=== PATIENT | female | born 2005 | race Two or more races ===

== ENCOUNTER → 2023-10-29 | Outpatient (CLI) | payer BC ==
[2023-10-29 07:29] LABS: Urine Bacteria None Seen /hpf (None Seen)
[2023-10-29 07:36] LABS: Basophils # (auto) 0.1 10 ^3/uL (0-0.2); Basophils % (auto) 0.7 % (0.0-2.0); Eosinophils # (auto) 0.2 10 ^3/uL (0-0.8); Eosinophils % (auto) 1.7 % (0.0-7.0); Hematocrit 39.6 % (36.0-46.0); Hemoglobin 13.2 g/dL (12.2-16.2); Lymphocytes # (auto) 2.3 10 ^3/uL (0.4-5.4); Lymphocytes % (auto) 22.6 % (10.0-50.0); Mean Corpuscular Hemoglobin 29.3 pg (28.0-32.0); Mean Corpuscular Hgb Conc. 33.3 g/dL (32.0-36.0); Mean Corpuscular Volume 88.2 fL (80.0-100.0); Monocytes # (auto) 0.7 10 ^3/uL (0-1.3); Monocytes % (auto) 7.3 % (0.0-12.0); Neutrophils # (auto) 6.8 10 ^3/uL (1.6-8.6); Neutrophils % (auto) 67.7 % (37.0-80.0); Platelet Count (auto) 336 10^3/uL (140-450); Red Blood Cells 4.49 10^6/uL (4.0-5.20); Red Cell Distribution Width 13.3 % (11.8-14.3); Urine Blood Negative /uL (Negative); Urine Clarity Clear (Clear); Urine Color Light-Yellow (Yellow); Urine Protein, UAD Negative (Negative); Urine Specific Gravity 1.016 (1.001-1.035); Urine Urobilinogen Normal (Negative); Urine WBC 1 /hpf (0 - 5); Urine pH 6.5 (5.0-9.0); White Blood Cell 10.1 10^3/uL (4.4-10.8)
[2023-10-29 08:21] LABS: Albumin 4.7 g/dL (3.2-4.8); Alkaline Phosphatase 70 U/L (46-116); Carbon Dioxide 23 mmol/L (20-30); Chloride 105 mmol/L (98-107); Triglycerides 67 mg/dL (< 150)
[2023-10-29 08:22] LABS: Anion Gap 7 (5-15); Aspartate Aminotransferase < 8 U/L (13-40); BUN/Creatinine Ratio 11.9 (10.0-20.0); Bilirubin, Total 0.3 mg/dL (0.2-1.0); Blood Urea Nitrogen 8 mg/dL (9-23); Cholesterol 125 mg/dL (< 200); Glucose 92 mg/dL (74-106); HDL Cholesterol 46 mg/dL (40-59); LDL Cholesterol 72 mg/dL (< 100); Potassium 3.8 mmol/L (3.5-5.1); Sodium 135 mmol/L (136-145); Total Protein 7.9 g/dL (5.7-8.2)
[2023-10-29 08:26] LABS: Alanine Aminotransferase < 9 U/L (7-40)
[2023-10-29 10:21] LABS: Uric Acid 3.1 mg/dL (3.1-7.8)
[2023-10-29 10:37] LABS: % Iron Saturation 14.7 % (15-50)
[2023-10-29 10:45] LABS: Folate (Folic Acid) 14.43 ng/mL (>5.38); Follicle Stimulating Hormone 1.7 IU/L (SEE BELOW)
[2023-10-29 10:46] LABS: Leuteinizing Hormone 2.2 IU/L; Prolactin 16.54 ng/mL (2.8-29.2)
== END | disposition home or self-care (01) ==
LOC: LAB 07:11
PROVIDERS: ATTEND Family Medicine
DX: R53.83 Other fatigue (principal); N92.6 Irregular menstruation, unspecified; Z86.39 Personal history of other endocrine, nutritional and metabolic disease; Z82.49 Family history of ischemic heart disease and other diseases of the circulatory system; Z83.3 Family history of diabetes mellitus
CPT/HCPCS: 36415; 80053; 80061; 81001; 82306; 82607; 82670; 82746; 83001; 83002; 83036; 83540; 83550; 84144; 84146; 84403; 84443; 84550; 85025

== ENCOUNTER 2024-01-07 23:45 | Emergency (ER) | payer BC ==
[~2024-01-07] VITALS: Ht 154.9 cm; Wt 56.4 kg
[2024-01-07 23:54] VITALS: BP 119/80; PULSE 106; RESP 16; O2SAT 98
[2024-01-08] MEDS: FLEET ENEMA(ADULT) 135 ML PR ONE (00:15)
[2024-01-08] MEDS: LACTULOSE 20Gm/30ML SOLN PO ONE (01:47)
[2024-01-08] MEDS ORDERED: LACT10SO3 PO (02:53)
[2024-01-08] MEDS ORDERED: ACET500T58 PO (02:53)
[2024-01-08] MEDS ORDERED: ZOFR4T PO (02:53)
== END 2024-01-08 03:24 | disposition home or self-care (01) ==
LOC: ER 23:45
DX: O99.611 Diseases of the digestive system complicating pregnancy, first trimester (principal); K59.00 Constipation, unspecified; Z3A.09 9 weeks gestation of pregnancy; Z88.0 Allergy status to penicillin

== ENCOUNTER 2024-02-11 12:13 | Emergency (ER) | payer BC ==
[~2024-02-11] VITALS: Ht 154.9 cm; Wt 56.5 kg
[~2024-02-11 12:13] MED LIST: ACET500T58 PO; LACT10SO3 PO; ZOFR4T PO
--- NOTE | 2024-02-11 13:07 | ED.PDOC ---
DIRECTOR SYSTEMS HPI Comments 18 y.o female presents to the ED for a chief complaint of nausea, vomiting and abdominal cramping that started 2-3 weeks ago. Patient is currently 14 weeks gestation, with HX of , [facility] 10/28/23, and has no DIRECTOR SYSTEMS at this time. Patient is unable to keep any food or liquids down and states new on set productive cough inducing vomiting as well. Patient reports she was seen at this hospital about 2 months ago for same complaint, was diagnosed with constipation and prescribed Zofran and Tylenol. At this time, patient reports medication has not helped alleviate her symptoms and is back for a reassessment. She denies any vaginal bleeding, urinary symptoms, fever or chills. No medical history or allergies reported. Chief Complaint: Nausea/Vomiting Time Seen by MD: 12:41 Reviewed Notes: Nurses Notes, Medications, Allergies Allergies: Coded Allergies: Penicillins (Verified Allergy, Unknown, 01/08/24) Home Meds Active Scripts Acetaminophen (Acetaminophen) 500 Mg Tab, 500 MG PO Q4HP PRN, #30 TAB Prov:ORESTES ACOSTA PAC 01/08/24 Ondansetron Odt 4MG Tab (ZOFRAN PO) 4 Mg Tb, 4 MG PO Q6HP PRN, #20 TAB ODT TAB-DISSOLVE IN MOUTH, THEN SWALLOW Prov:ORESTES ACOSTA PAC 01/08/24 Lactulose (Lactulose) 10 Gm/15 Ml Tiffany, 10 GM PO Q8HP PRN, #150 ML Prov:ORESTES ACOSTA PAC 01/08/24 Information Source: Patient Mode of Arrival: Ambulatory Timing: Weeks (2) Severity: Moderate Onset Of Mass/Bleeding: Spontaneous Sexual Activity: Control: None History of: Current Associated Signs and Symptoms: Abdominal Pain, N/V Past Medical History PAST MEDICAL HISTORY: Denies Surgical History: Denies all surgeries INTERNATIONAL EDITORIAL PRODUCER History: Denies all INTERNATIONAL EDITORIAL PRODUCER Hx Family History Family History: Reviewed,noncontributory to illness Social History Smoker: Non-Smoker Alcohol: Denies ETOH Use Drugs: Denies Drug Use Lives In: Home Constitutional: denies: chills, diaphoresis, fatigue, fever, malaise, sweats, weakness, others EENTM: denies: blurred vision, double vision, ear bleeding, ear discharge, ear drainage, ear pain, ear ringing, eye pain, eye redness, hearing loss, mouth pain, mouth swelling, nasal discharge, nose bleeding, nose congestion, nose p ain, photophobia, tearing, throat pain, throat swelling, voice changes, others Respiratory: denies: cough, hemoptysis, orthopnea, SOB at rest, shortness of breath, SOB with excertion, stridor, wheezing, others Cardiovascular: denies: chest pain, dizzy spells, diaphoresis, Dyspnea on exertion, edema, irregular heart beat, left arm pain, lightheadedness, palpitations, PND, syncope, others Gastrointestinal: reports: abdominal pain, nausea, vomiting; denies: abdomen distended, blood streaked bowels, constipated, diarrhea, dysphagia, difficulty swallowing, hematemesis, melena, poor appetite, poor fluid intake, rectal bleeding, rectal pain, others Genitourinary: reports: ; denies: abnormal vagina bleeding, burning, dyspareunia, dysuria, flank pain, frequency, hematuria, incontinence, pain, vagina discharge, urgency, others Neurological: denies: dizziness, fainting, headache, left sided numbness, left sided weakness, numbness, paresthesia, pre-existing deficit, right sided numbness, right sided weakness, seizure, speech problems, tingling, tremors, weakness, others Musculoskeletal: denies: back pain, gout, joint pain, joint swelling, muscle pain, muscle stiffness, neck pain, others Integumetry: denies: bruises, change in color, change in hair/nails, dryness, laceration, lesions, lumps, rash, wounds, others Allergic/Immunocompromised: denies: Difficulty Healing, Frequent Infections, Hives, Itching, others Hematologic/Lymphatic: denies: anemia, blood clots, easy bleeding, easy bruising, swollen glands, others Endocrine: denies: excessive hunger, excessive sweating, excessive thirst, excessive urination, flushing, intolerance to cold, intolerance to heat, unexplained weight gain, unexplained weight loss, others Psychiatric: denies: anxiety, bipolar disorder, depression, hopeless, panic disorder, schizophrenia, sleepless, suicidal, others All Other Systems: Reviewed and Negative Physical Exam General Appearance: Moderate Distress HEENT: Normal ENT Inspection, Pharynx Normal, TMs Normal Neck: Full Range of Motion, Non-Tender, Normal, Normal Inspection Respiratory: Chest Non-Tender, Lungs Clear, No Accessory Muscle Use, No Respiratory Distress, Normal Breath Sounds Cardiovascular: No Edema, No JVD, No Murmur, No Gallop, Normal Peripheral Pulses, Regular Rate/Rhythm Breast Exam: Deferred Gastrointestinal: No Organomegaly, Non Tender, No Pulsatile Mass, Normal Bowel Sounds, Soft Genitalia: Deferred Pelvic: Deferred Rectal: Deferred Extremities: No calf tenderness, Normal capillary refill, Normal inspection, Normal range of motion, Non-tender, No pedal edema Musculoskeletal : Apperance: Normal Neurologic: Alert, brim ironer hand II-XII nml as Tested, No Motor Deficits, Normal Affect, Normal Mood, No Sensory Deficits Cerebellar Function: Normal Reflexes: Normal Skin: Dry, Normal Color, Warm Peripheral Pulses: 3+ Radial (R), 3+ Radial (L) Lymphatic: No Adenopathy Was a procedure done? Was a procedure done?: No Differential Diagnosis (INTERNATIONAL EDITORIAL PRODUCER) Vaginal Bleeding: - Complete, - Incomplete, - Inevitable, - Missed, - Threatened, N/A Comments hyperemesis gravidarum, Gastroenteritis (viral or bacterial) , Gastroesophageal reflux disease (GERD) X-Ray, Labs, Meds, VS Vital Signs Date Time Temp Pulse Resp B/P (MAP) Pulse Ox O2 Delivery O2 Flow Rate FiO2 02/11/24 15:10 112 18 98 Room Air* 0 21 02/11/24 15:10 98.8 112 18 128/92 (104) 98 98.8 02/11/24 12:39 125 02/11/24 12:39 98.3 142 18 159/93 (115) 97 Lab Test 02/11/24 14:18 Range/Units White Blood Count 11.4 H 4.4-10.8 10^3/uL Red Blood Count 4.03 4.0-5.20 10^6/uL Hemoglobin 11.9 L 12.2-16.2 g/dL Hematocrit 36.2 36.0-46.0 % Mean Corpuscular Volume 89.9 80.0-100.0 fL Mean Corpuscular Hemoglobin 29.6 28.0-32.0 pg Mean Corpuscular Hemoglobin Concent 33.0 32.0-36.0 g/dL Red Cell Distribution Width 13.1 11.8-14.3 % Platelet Count 325 140-450 10^3/uL Mean Platelet Volume 8.1 6.9-10.8 fL Neutrophils (%) (Auto) 75.8 37.0-80.0 % Lymphocytes (%) (Auto) 15.3 10.0-50.0 % Monocytes (%) (Auto) 7.8 0.0-12.0 % Eosinophils (%) (Auto) 0.8 0.0-7.0 % Basophils (%) (Auto) 0.3 0.0-2.0 % Neutrophils # (Auto) 8.7 H 1.6-8.6 10 ^3/uL Lymphocytes # (Auto) 1.7 0.4-5.4 10 ^3/uL Monocytes # (Auto) 0.9 0-1.3 10 ^3/uL Eosinophils # (Auto) 0.1 0-0.8 10 ^3/uL Basophils # (Auto) 0 0-0.2 10 ^3/uL Nucleated Red Blood Cells 0.1 % Sodium Level 138 136-145 mmol/L Potassium Level 4.1 3.5-5.1 mmol/L Chloride Level 105 98-107 mmol/L Carbon Dioxide Level 25 20-31 mmol/L Anion Gap 8 5-15 Blood Urea Nitrogen 6 L 9-23 mg/dL Creatinine 0.54 L 0.550-1.02 mg/dL Glomerular Filtration Rate Calc 135 >90 mL/min BUN/Creatinine Ratio 11.1 10.0-20.0 Serum Glucose 73 L 74-106 mg/dL Calcium Level 10.4 8.7-10.4 mg/dL Beta HCG, Quantitative 419789.3 H 1.5-4.2 mIU/mL OB US: FINDINGS: Single living intrauterine gestation. Presentation: Varied Placenta: Fundal heart rate: 151 bpm MVP: 4.4 cm Maternal cervix: Closed and long The following measurements were obtained: BPD: 2.7 cm corresponding to 14 weeks and 6 days HC: 10 cm corresponding to 14 weeks and 5 days AC: 7.9 cm corresponding to 14 weeks and 3 days FL: 1.6 cm corresponding to 14 weeks and 6 days Average ultrasound age: 14 weeks and 5 days ANURAG by ultrasound: 08/06/2024 Estimated weight: 102 g IMPRESSION: 1. Single currently living intrauterine gestation, as described above. Patient alert. Came in because of cramping. Denies bleeding. Vitals stable. Ultrasound reviewed does show live fetus. Beta quant appropriate. Spoke with OBGYN. Hematocrit within normal limits. Possible dehydration. Was told to drink plenty of fluids. Explained to the patient. Was told to follow up with her OBGYN. Was told to follow up with her primary care physician. Told to come back if there is any problem. Images Reviewed?: Images reviewed and evaluated by me Time of 1ST Reevaluation: 13:02 Reevaluation 1ST: Improved Time of 2ND Reevaluation: 15:57 Reevaluation 2ND: Improved Patient Education/Counseling: Diagnosis, Treatment, Prognosis Family Education/Counseling: No Family Present Departure 1 Departure Time of Disposition: 15:59 Impression: Primary Impression: Normal Qualified Codes: Z34.90 - Encounter for supervision of normal , unspecified, unspecified trimester Disposition: 01 HOME / SELF CARE / HOMELESS Condition: Good Discharged With: Self Critical Care Note Critical Care Time?: No Stability Stability form required: No I personally scribed for DARYL WALLS MD ([email or web address]) on 02/11/24 at 13:07. Electronically submitted by Emily Qureshi ([email or web address]). I personally scribed for DARYL WALLS MD ([email or web address]) on 02/11/24 at 15:33. Electronically submitted by Moi Bright ([email or web address]). DARYL WALSL MD Feb 11, 2024 13:07
[2024-02-11 14:34] LABS: Basophils # (auto) 0 10 ^3/uL (0-0.2); Basophils % (auto) 0.3 % (0.0-2.0); Eosinophils # (auto) 0.1 10 ^3/uL (0-0.8); Eosinophils % (auto) 0.8 % (0.0-7.0); Hematocrit 36.2 % (36.0-46.0); Hemoglobin 11.9 g/dL (12.2-16.2); Lymphocytes # (auto) 1.7 10 ^3/uL (0.4-5.4); Lymphocytes % (auto) 15.3 % (10.0-50.0); Mean Corpuscular Hemoglobin 29.6 pg (28.0-32.0); Mean Corpuscular Volume 89.9 fL (80.0-100.0); Monocytes # (auto) 0.9 10 ^3/uL (0-1.3); Monocytes % (auto) 7.8 % (0.0-12.0); Neutrophils # (auto) 8.7 10 ^3/uL (1.6-8.6); Neutrophils % (auto) 75.8 % (37.0-80.0); Nucleated Red Blood Cells % 0.1 %; Platelet Count (auto) 325 10^3/uL (140-450); Red Blood Cells 4.03 10^6/uL (4.0-5.20); Red Cell Distribution Width 13.1 % (11.8-14.3); White Blood Cell 11.4 10^3/uL (4.4-10.8)
[2024-02-11 14:43] LABS: Chloride 105 mmol/L (98-107); Potassium 4.1 mmol/L (3.5-5.1); Sodium 138 mmol/L (136-145)
[2024-02-11 14:44] LABS: Anion Gap 8 (5-15); Calcium 10.4 mg/dL (8.7-10.4); Carbon Dioxide 25 mmol/L (20-31)
--- NOTE | 2024-02-11 14:45 | DVH ---
Procedure: US OB ULTRASOUND COMP LESS 14WKS 02/11/2024 01:42 PM HISTORY: cramping COMPARISON: None TECHNIQUE: Sonogram of the gravid uterus was performed. FINDINGS: Single living intrauterine gestation. Presentation: Varied Placenta: Fundal heart rate: 151 bpm MVP: 4.4 cm Maternal cervix: Closed and long The following measurements were obtained: BPD: 2.7 cm corresponding to 14 weeks and 6 days HC: 10 cm corresponding to 14 weeks and 5 days AC: 7.9 cm corresponding to 14 weeks and 3 days FL: 1.6 cm corresponding to 14 weeks and 6 days Average ultrasound age: 14 weeks and 5 days ANURAG by ultrasound: 08/06/2024 Estimated weight: 102 g IMPRESSION: 1. Single currently living intrauterine gestation, as described above.
[2024-02-11 14:49] LABS: BUN/Creatinine Ratio 11.1 (10.0-20.0)
[2024-02-11 14:50] LABS: Blood Urea Nitrogen 6 mg/dL (9-23); Glucose 73 mg/dL (74-106)
[2024-02-11 15:10] VITALS: PULSE 112; RESP 18; O2SAT 98
[2024-02-11 17:47] LABS: Urine Bacteria None Seen /hpf (None Seen)
[2024-02-11 18:22] LABS: Urine Blood Negative /uL (Negative); Urine Clarity Clear (Clear); Urine Color Light-Yellow (Yellow); Urine Mucus FEW (None Seen); Urine Protein, UAD Negative (Negative); Urine Specific Gravity 1.016 (1.001-1.035); Urine Urobilinogen Normal (Negative); Urine WBC 1 /hpf (0 - 5); Urine pH 5.5 (5.0-9.0)
[2024-02-11 21:02] VITALS: BP 120/84; PULSE 103; RESP 18; TEMP 98.2; O2SAT 97
--- NOTE | 2024-02-12 07:04 | ECG ---
[facility] Test Date: 2024-02-11 Test Time: 12:35:59 Pat Name: LINUS BENDER Department: ED Room: Gender: F Senior Procurement Manager: TENZIN : 2005 Requested By: DARYL WALLS Order Number: [id number] Reading MD: Nitin Giang Measurements Intervals [place] Rate: 125 P: 52 MI: 121 QRS: 91 QRSD: 79 T: -2 QT: 291 QTc: 420 Interpretive Statements Sinus tachycardia Borderline right axis deviation Borderline T wave abnormalities Electronically Signed On 02-18-2024 14:46:17 PST by Nitin Giang Please click the below link to view image of tracing.
== END 2024-02-11 21:04 | disposition home or self-care (01) ==
LOC: ER 12:13
DX: O26.892 Other specified pregnancy related conditions, second trimester (principal); R10.2 Pelvic and perineal pain; R10.9 Unspecified abdominal pain; Z3A.14 14 weeks gestation of pregnancy; Z88.0 Allergy status to penicillin; Z79.899 Other long term (current) drug therapy
CPT/HCPCS: 36415; 76801; 80048; 81001; 84702; 85025; 93005

== ENCOUNTER → 2024-03-24 | Outpatient (CLI) | payer MEDICAID | END | disposition home or self-care (01) | LOC: LAB 15:37 | DX: Z34.00 Encounter for supervision of normal first pregnancy, unspecified trimester (principal) | CPT/HCPCS: 36415; 84439; 84443 ==

== ENCOUNTER 2024-04-01 19:52 | Observation (INO) | payer MEDICAID ==
--- NOTE | 2024-04-01 21:48 | DVHDS2 ---
Physician Discharge Progress N Final Diagnosis: IUP 21 wk, cramping Rd ligament pain Secondary Diagnosis: NOT in labor Operations or Procedures: Operations or Procedures TOCO, no contractions noted FHR+ by doppler UA neg Condition on Discharge: Stable Disposition: Home Discharge Instructions: Diet: Regular Activity: No Restrictions, As Tolerated Follow Up/Referral: Keep regular OB appt. Medications: Tylenol PRN pain Follow Up Care: Discharge Statement: "Patient was advised to return to the ER or call 911 if any headaches, dizziness, shortness of breath, chest pain, abdominal pain, bleeding, fevers, or worsening of medical condition. Patient was counseled about treatment plan, medications, possible side effects, patientverbalized understanding. All questions were answered to the best of my ability. This discharge took greater then 30 minutes in planning, reviewing documentation, counseling the patient, and discussing with other team members." HEIDI GRIER DO Apr 01, 2024 21:48
== END 2024-04-01 21:31 | disposition home or self-care (01) ==
LOC: LDRP 19:52
PROVIDERS: ADMIT Obstetrics & Gynecology; ATTEND Obstetrics & Gynecology
DX: O26.892 Other specified pregnancy related conditions, second trimester (principal); R10.2 Pelvic and perineal pain; Z3A.21 21 weeks gestation of pregnancy; Z79.899 Other long term (current) drug therapy; Z88.0 Allergy status to penicillin
CPT/HCPCS: 59025; 81002; 94760; G0378

== ENCOUNTER 2024-04-14 02:14 | Observation (INO) | payer MEDICAID ==
[~2024-04-14] VITALS: Ht 154.9 cm; Wt 57.3 kg
[2024-04-14 02:40] VITALS: BP 103/67; PULSE 102; RESP 16; O2SAT 99
[2024-04-14] MEDS ORDERED: ACETAMINOPHEN 325 MG TAB PO ONE (02:45)
--- NOTE | 2024-04-14 02:58 | ED.PDOC ---
General HPI Comments 19 year old female presents to the ED with a chief complaint of RT flank pain onset yesterday. Patient states she noticed RT flank pain yesterday, manageable and improved on its own. Patient was asleep, woke up about 2 hours ago, experiencing sharp RT flank pain, nausea, vomiting. Patient is currently 23 weeks , saw OBGYN 2 days ago. Denies and PMHx as well as vaginal discharge, spotting, dysuria, hematuria, diarrhea, chest pain, shortness of breath, dizziness, headache. No other symptoms or modifying factors present at this time. Time Seen by MD: 02:37 Reviewed notes: Medications, Allergies Allergies: Coded Allergies: Penicillins (Verified Allergy, Unknown, 01/08/24) Home Meds Active Scripts Vit W/ Ferrous Fumara ( One Daily) Daily Tab, 1 TAB PO DAILY, #90 TAB 3 Refills Prov:CHRISTIN MULLINS CNM /08/31 Metoclopramide Hcl (Reglan) 10 Mg Tab, 10 MG PO TID PRN for 30 Days, #90 TAB Prov:NADINE MULLINSHI CNM /08/31 Doxylamine Succinate (Sleep) (Unisom) 25 Mg Tab, 25 MG PO HS for 30 Days, #30 TAB 1 Refill take for nausea and sleep Prov:RONNADNADINE FLOYDHI CNM 2/08/31 Pyridoxine Hcl (Vitamin B 6) 50 Mg Tab, 50 MG PO TID for 30 Days, #90 TAB 1 Refill take for nausea Prov:NADINE MULLINSHI CNM /25 Nitrofurantoin Monohydrate Mac (Macrobid) 100 Mg Cap, 100 MG PO BID for 7 Days, #14 CAP Prov:NADINE MULLINSHI CNM 04/14/25 Acetaminophen (Acetaminophen) 500 Mg Tab, 500 MG PO Q4HP PRN, #30 TAB Prov:ORESTES ACOSTA 01/08/24 Ondansetron Odt 4MG Tab (ZOFRAN PO) 4 Mg Tb, 4 MG PO Q6HP PRN, #20 TAB ODT TAB-DISSOLVE IN MOUTH, THEN SWALLOW Prov:ORESTES ACOSTA PAC 01/08/24 Lactulose (Lactulose) 10 Gm/15 Ml Tiffany, 10 GM PO Q8HP PRN, #150 ML Prov:ORESTES ACOSTA PAC 01/08/24 Information Source: Patient, Relative Mode of Arrival: Ambulatory Severity: Moderate Timing: Days Duration: Since onset Prehospital treatment: None Onset: Spontaneous Symptoms: None History of: None Location: (R) Flank associated signs and symptoms: Flank Pain Vital Signs Vital Signs Date Time Temp Pulse Resp B/P (MAP) Pulse Ox O2 Delivery O2 Flow Rate FiO2 04/14/24 02:40 98.3 102 16 103/67 (79) 99 Physical Exam General: Awake, alert and oriented. No acute distress. Skin: Skin in warm, dry and intact. Appropriate color for ethnicity. HEENT: The head is normocephalic and atraumatic. Conjunctivae are clear without exudates or hemorrhage. Sclera is non-icteric. EOM are intact. No signs of nystagmus. Eyelids are normal in appearance without swelling or lesions. Oral mucosa is pink and moist Neck: The neck is supple with normal range of motion. No JVD. Cardiac: Heart rate and rhythm are normal. No murmurs, gallops, or rubs are auscultated. Respiratory: No signs of respiratory distress. Lung sounds are clear in all lobes bilaterally without rales, ronchi, or wheezes. Abdominal: Abdomen is soft, right lower quadrant/right flank tenderness to palpation. Positive right-sided CVA tenderness. Bowel sounds are present and normoactive in all four quadrants. Musculoskeletal: Right lower back tenderness to palpation. Upper and lower extremities are atraumatic in appearance without deformity or edema. Neurological: The patient is awake, alert and oriented to person, place, and time with normal speech. Speech is clear. There is no facial asymmetry. Psychiatric: Appropriate mood and affect. Good judgement and insight. No visual or auditory hallucinations. Review of Systems: As stated in HPI Past Medical History PAST MEDICAL HISTORY: Denies Surgical History: Denies all surgeries PROMOTIONS MANAGER History: Denies all PROMOTIONS MANAGER Hx Family History Family History: Reviewed,noncontributory to illness Social History Smoker: Non-Smoker Alcohol: Denies ETOH Use Drugs: Denies Drug Use Lives In: Home Was a procedure done? Was a procedure done?: No Differential Diagnosis Kidney stone (Female): Other (Differential diagnoses considered include: Abdominal aortic aneurysm, TN, esophageal rupture, intestinal obstruction, mesenteric ischemia, perforated viscus or solid organ rupture, CHF with hepatomegaly, pneumonia, abscess, appendicitis, biliary disease, diverticulitis, gastritis, gastroenteritis, hepatitis, hernia, inflammatory bowel disease, pancreatitis, peptic ulcer disease, urinary tract infection, ureteral colic, constipation, GERD, irritable syndrome, abdominal wall pain, nonspecific a bdominal pain, herpes zoster, ovarian torsion/cyst, tubo-ovarian abscess, PID, endometriosis, mittleschmerz, related complications.) X-Ray, Labs, Meds, VS Vital Signs Date Time Temp Pulse Resp B/P (MAP) Pulse Ox O2 Delivery O2 Flow Rate FiO2 04/14/24 02:40 98.3 102 16 103/67 (79) 99 Lab Test 04/14/24 03:08 Range/Units White Blood Count 10.3 4.4-10.8 10^3/uL Red Blood Count 3.48 L 4.0-5.20 10^6/uL Hemoglobin 10.7 L 12.2-16.2 g/dL Hematocrit 31.2 L 36.0-46.0 % Mean Corpuscular Volume 89.8 80.0-100.0 fL Mean Corpuscular Hemoglobin 30.6 28.0-32.0 pg Mean Corpuscular Hemoglobin Concent 34.1 32.0-36.0 g/dL Red Cell Distribution Width 14.0 11.8-14.3 % Platelet Count 279 140-450 10^3/uL Mean Platelet Volume 8.1 6.9-10.8 fL Neutrophils (%) (Auto) 72.7 37.0-80.0 % Lymphocytes (%) (Auto) 18.1 10.0-50.0 % Monocytes (%) (Auto) 7.9 0.0-12.0 % Eosinophils (%) (Auto) 0.9 0.0-7.0 % Basophils (%) (Auto) 0.4 0.0-2.0 % Neutrophils # (Auto) 7.5 1.6-8.6 10 ^3/uL Lymphocytes # (Auto) 1.9 0.4-5.4 10 ^3/uL Monocytes # (Auto) 0.8 0-1.3 10 ^3/uL Eosinophils # (Auto) 0.1 0-0.8 10 ^3/uL Basophils # (Auto) 0 0-0.2 10 ^3/uL Nucleated Red Blood Cells 0.0 % Sodium Level 135 L 136-145 mmol/L Potassium Level 3.8 3.5-5.1 mmol/L Chloride Level 104 98-107 mmol/L Carbon Dioxide Level 22 20-31 mmol/L Anion Gap 9 5-15 Blood Urea Nitrogen 8 L 9-23 mg/dL Creatinine 0.38 L 0.550-1.02 mg/dL Glomerular Filtration Rate Calc 146 >90 mL/min BUN/Creatinine Ratio 21.1 H 10.0-20.0 Serum Glucose 86 74-106 mg/dL Lactic Acid Level 0.5 0.4-2.0 mmol/L Calcium Level 9.8 8.7-10.4 mg/dL Total Bilirubin 0.5 0.2-1.0 mg/dL Aspartate Amino Transferase (AST) 11 L 13-40 U/L Alanine Aminotransferase (ALT) < 9 7-40 U/L Alkaline Phosphatase 54 46-116 U/L Total Protein 6.9 5.7-8.2 g/dL Albumin 4.2 3.2-4.8 g/dL Lipase 39 12-53 U/L Time of 1ST Reevaluation: 03:07 Reevaluation 1ST: Unchanged Patient Education/Counseling: Diagnosis, Treatment, Prognosis Family Education/Counseling: Diagnosis, Treatment, Prognosis Additional Information The following tests were ordered, and results were reviewed by me: CBC, CMP, UA, LA W/REFLEX, LIPASE, US ABDOMEN LIMITED, US OB TRAS VAGINAL I reviewed and agreed with the following test results read by other providers: US ABDOMEN LIMITED, US OB TRAS VAGINAL I discussed treatment and results with medical personnel and patient Departure 1 Departure Time of Disposition: 05:45 Impression: Primary Impression: Flank pain Additional Impression: Disposition: 30 STILL A PATIENT Condition: Stable e-Prescriptions Vit W/ Ferrous Fumara ( One Daily) Daily Tab 1 TAB PO DAILY, #90 TAB 3 Refills Prov: CHRISTIN MULLINS CNM 04/14/24 Metoclopramide Hcl (Reglan) 10 Mg Tab 10 MG PO TID PRN for 30 Days, #90 TAB Prov: CHRISTIN MULLINS CNM 2/6/25 Doxylamine Succinate (Sleep) (Unisom) 25 Mg Tab 25 MG PO HS for 30 Days, #30 TAB 1 Refill take for nausea and sleep Prov: CHRISTIN MULLINS 04/14/24 Pyridoxine Hcl (Vitamin B 6) 50 Mg Tab 50 MG PO TID for 30 Days, #90 TAB 1 Refill take for nausea Prov: CHRISTIN MULLINS [facility] 04/14/24 Nitrofurantoin Monohydrate Mac (Macrobid) 100 Mg Cap 100 MG PO BID for 7 Days, #14 CAP Prov: CHRISTIN MULLINS [facility] 04/14/24 Comments 27-year-old female 23 weeks gestational age who presented to the emergency department with right flank/right lower quadrant abdominal pain. Patient was transferred to labor and delivery for further observation. Critical Care Note Critical Care Time?: No Stability Stability form required: No I personally scribed for KAIT FARIAS MD ([email or web address]) on 04/14/24 at 02:58. Electronically submitted by Jessie Barker ([email or web address]). I personally scribed for KAIT FARIAS MD ([email or web address]) on 04/14/24 at 03:07. Electronically submitted by Jessie Barker ([email or web address]). KAIT FARIAS MD Apr 14, 2024 02:58
[2024-04-14 03:44] LABS: Basophils # (auto) 0 10 ^3/uL (0-0.2); Basophils % (auto) 0.4 % (0.0-2.0); Eosinophils # (auto) 0.1 10 ^3/uL (0-0.8); Eosinophils % (auto) 0.9 % (0.0-7.0); Hematocrit 31.2 % (36.0-46.0); Hemoglobin 10.7 g/dL (12.2-16.2); Lymphocytes # (auto) 1.9 10 ^3/uL (0.4-5.4); Lymphocytes % (auto) 18.1 % (10.0-50.0); Mean Corpuscular Hemoglobin 30.6 pg (28.0-32.0); Mean Corpuscular Hgb Conc. 34.1 g/dL (32.0-36.0); Mean Corpuscular Volume 89.8 fL (80.0-100.0); Monocytes # (auto) 0.8 10 ^3/uL (0-1.3); Monocytes % (auto) 7.9 % (0.0-12.0); Neutrophils # (auto) 7.5 10 ^3/uL (1.6-8.6); Neutrophils % (auto) 72.7 % (37.0-80.0); Platelet Count (auto) 279 10^3/uL (140-450); Red Blood Cells 3.48 10^6/uL (4.0-5.20); White Blood Cell 10.3 10^3/uL (4.4-10.8)
[2024-04-14 03:58] LABS: Albumin 4.2 g/dL (3.2-4.8); Alkaline Phosphatase 54 U/L (46-116); Anion Gap 9 (5-15); BUN/Creatinine Ratio 21.1 (10.0-20.0); Bilirubin, Total 0.5 mg/dL (0.2-1.0); Calcium 9.8 mg/dL (8.7-10.4); Carbon Dioxide 22 mmol/L (20-31); Chloride 104 mmol/L (98-107); Glucose 86 mg/dL (74-106); Lipase 39 U/L (12-53); Potassium 3.8 mmol/L (3.5-5.1); Total Protein 6.9 g/dL (5.7-8.2)
[2024-04-14 04:03] LABS: Alanine Aminotransferase < 9 U/L (7-40); Aspartate Aminotransferase 11 U/L (13-40); Blood Urea Nitrogen 8 mg/dL (9-23); Sodium 135 mmol/L (136-145)
--- NOTE | 2024-04-14 04:36 | DVHDS2 ---
Physician Discharge Progress N Final Diagnosis: UTI Nausea and vomiting Ruled out kidney stones Operations or Procedures: Operations or Procedures S: 19yo IUP@23.3wks presents to OB triage with c/o burning when she pees and right flank pain. +FM, denies UCs/VB. Pt also has c/o N/V. O: VSS +CVA tenderness on right side +FHTs Laboratory Tests Test 04/14/24 03:08 04/14/24 04:41 Range/Units White Blood Count 10.3 4.4-10.8 10^3/uL Red Blood Count 3.48 L 4.0-5.20 10^6/uL Hemoglobin 10.7 L 12.2-16.2 g/dL Hematocrit 31.2 L 36.0-46.0 % Mean Corpuscular Volume 89.8 80.0-100.0 fL Mean Corpuscular Hemoglobin 30.6 28.0-32.0 pg Mean Corpuscular Hemoglobin Concent 34.1 32.0-36.0 g/dL Red Cell Distribution Width 14.0 11.8-14.3 % Platelet Count 279 140-450 10^3/uL Mean Platelet Volume 8.1 6.9-10.8 fL Neutrophils (%) (Auto) 72.7 37.0-80.0 % Lymphocytes (%) (Auto) 18.1 10.0-50.0 % Monocytes (%) (Auto) 7.9 0.0-12.0 % Eosinophils (%) (Auto) 0.9 0.0-7.0 % Basophils (%) (Auto) 0.4 0.0-2.0 % Neutrophils # (Auto) 7.5 1.6-8.6 10 ^3/uL Lymphocytes # (Auto) 1.9 0.4-5.4 10 ^3/uL Monocytes # (Auto) 0.8 0-1.3 10 ^3/uL Eosinophils # (Auto) 0.1 0-0.8 10 ^3/uL Basophils # (Auto) 0 0-0.2 10 ^3/uL Nucleated Red Blood Cells 0.0 % Sodium Level 135 L 136-145 mmol/L Potassium Level 3.8 3.5-5.1 mmol/L Chloride Level 104 98-107 mmol/L Carbon Dioxide Level 22 20-31 mmol/L Anion Gap 9 5-15 Blood Urea Nitrogen 8 L 9-23 mg/dL Creatinine 0.38 L 0.550-1.02 mg/dL Glomerular Filtration Rate Calc 146 >90 mL/min BUN/Creatinine Ratio 21.1 H 10.0-20.0 Serum Glucose 86 74-106 mg/dL Lactic Acid Level 0.5 0.4-2.0 mmol/L Calcium Level 9.8 8.7-10.4 mg/dL Total Bilirubin 0.5 0.2-1.0 mg/dL Aspartate Amino Transferase (AST) 11 L 13-40 U/L Alanine Aminotransferase (ALT) < 9 7-40 U/L Alkaline Phosphatase 54 46-116 U/L Total Protein 6.9 5.7-8.2 g/dL Albumin 4.2 3.2-4.8 g/dL Lipase 39 12-53 U/L Urine Color Yellow Yellow Urine Clarity Turbid H Clear Urine pH 6.0 5.0-9.0 Urine Specific [place] 1.028 1.001-1.035 Urine Protein 1+ H Negative Urine Ketones 3+ H Negative Urine Blood Negative Negative /uL Urine Nitrite Negative Negative Urine Bilirubin Negative Negative Urine Urobilinogen Normal Negative mg/dL Urine Leukocyte Esterase 1+ Negative /uL Urine RBC 2 0 - 4 /hpf Urine Microscopic WBC 15 H 0-5 /HPF Urine Squamous Epithelial Cells Mod <5 /hpf Urine Bacteria Few H None Seen /hpf Urine Mucus Few None Seen Urine Glucose Normal Normal mg/dL Urine Opiates Screen Neg NEGATIVE Urine Fentanyl Screen Neg NEGATIVE Urine Barbiturates Screen Neg NEGATIVE Urine Phencyclidine Screen Neg NEGATIVE Urine Amphetamines Screen Neg NEGATIVE Urine Benzodiazepines Screen Neg NEGATIVE Urine Cocaine Screen Neg NEGATIVE Urine Cannabinoids Screen Neg NEGATIVE Vital Signs Date Time Temp Pulse Resp B/P (MAP) Pulse Ox O2 Delivery O2 Flow Rate FiO2 04/14/24 02:40 98.3 102 16 103/67 (79) 99 A: 19yo IUP@23.3wks UTI Nausea and vomiting Ruled out kidney stones P: D/C home SAB/PTL precautions reviewed Rx sent to pharmacy Dr. Mullen consulted, agrees with POC. Other Interventions Other Interventions [facility] [id number] [place] [id number] Ph: [phone] DIAGNOSTIC IMAGING Diagnostic Imaging Report : [id number] Signed PATIENT: LINUS BENDER ACCT: [id number] UNIT: [id number] : 2005 LOC: [facility] ROOM / BED: TRIAGE1 / A AGE / SEX: 19 / F ADM STATUS: ADM IN SERVICE [id number] ORDERING PHYSICIAN: CHRISTIN MULLINS CNM PROCEDURE(s): ABDC - ABDOMEN COMPLETE SONOGRAM REASON: ABD PAIN ORDER NUMBER(s): [id number], ACCESSION NUMBER(s): [id number] INDICATION: ABD PAIN TECHNIQUE: Multiple real-time sonographic images of the abdomen were obtained. COMPARISON: None FINDINGS: The liver is homogenous in echogenicity. The liver measures 13.1 cm. No intrahepatic biliary ductal dilatation is noted. The gallbladder wall measures 0.2 cm and is unremarkable. No gallstones or sludge is seen. The common duct measures 0.4 cm and is unremarkable. No pericholecystic fluid is noted. Negative sonographic Love's sign. The right kidney measures 10.4 cm. Mild right hydronephrosis. The left kidney measures 9.5 cm. Mild left hydronephrosis. The spleen measures 12.6 cm. The pancreas is not well visualized due to obscuration from bowel gas. The visualized portions of the IVC and aorta are grossly unremarkable. IMPRESSION: 1. No acute hepatobiliary pathology. Mild bilateral hydronephrosis. ATED BY: ROSE MARIE DAY MD DICTATED DATE/TIME: 04/14/24537 SIGNED BY: ROSE MARIE DAY MD SIGNED DATE/TIME: 04/14/24537 CC: Condition on Discharge: Stable Disposition: Home Discharge Instructions: Diet: Regular Activity: No Restrictions, As Tolerated Medications: see med list Follow Up Care: Specialist: f/u with primary OB as scheduled Discharge Statement: "Patient was advised to return to the ER or call 911 if any headaches, dizziness, shortness of breath, chest pain, abdominal pain, bleeding, fevers, or worsening of medical condition. Patient was counseled about treatment plan, medications, possible side effects, patientverbalized understanding. All questions were answered to the best of my ability. This discharge took greater then 30 minutes in planning, reviewing documentation, counseling the patient, and discussing with other team members." Visit Coding OBGYN Date of Service: Apr 14, 2024 Billing Provider: CHRISTIN MULLINS CNM RETAIL WIRELESS ASSOCIATE Common Visit Codes: [id number] OBS CARE (MOD) CHRISTIN MULLINS CNM Apr 14, 2024 04:36
[2024-04-14] MEDS ORDERED: PREN-96 PO (04:43)
[2024-04-14] MEDS ORDERED: NITR-87 PO (04:43)
[2024-04-14] MEDS ORDERED: DOXY25TA9 PO (04:43)
[2024-04-14] MEDS ORDERED: METO-281 PO (04:43)
[2024-04-14] MEDS ORDERED: PYRI50TA71 PO (04:43)
[2024-04-14 05:04] LABS: Urine Bacteria FEW /hpf (None Seen); Urine Blood Negative /uL (Negative); Urine Clarity Turbid (Clear); Urine Color Yellow (Yellow); Urine Mucus FEW (None Seen); Urine Protein, UAD 1+ (Negative); Urine Specific Gravity 1.028 (1.001-1.035); Urine Squamous Epithelial Cell MOD /hpf (<5); Urine Urobilinogen Normal (Negative); Urine WBC 15 /HPF (0-5)
[2024-04-14 05:20] LABS: Amphetamine Screen, Urine Neg (NEGATIVE); Barbiturate Scree,Urine Neg (NEGATIVE); Benzodiazephine Screen, Urine Neg (NEGATIVE); Cannabinoid Screen, Urine Neg (NEGATIVE); Cocaine Screen, Urine Neg (NEGATIVE); Opiate Scree,Urine Neg (NEGATIVE); Phencyclidine Screen, Urine Neg (NEGATIVE)
--- NOTE | 2024-04-14 05:40 | DVH ---
INDICATION: ABD PAIN TECHNIQUE: Multiple real-time sonographic images of the abdomen were obtained. COMPARISON: None FINDINGS: The liver is homogenous in echogenicity. The liver measures 13.1 cm. No intrahepatic bilia ry ductal dilatation is noted. The gallbladder wall measures 0.2 cm and is unremarkable. No gallstones or sludge is seen. The com mon duct measures 0.4 cm and is unremarkable. No pericholecystic fluid is noted. Negative sonographi c Love's sign. The right kidney measures 10.4 cm. Mild right hydronephrosis. The left kidney measures 9.5 cm. Mil d left hydronephrosis. The spleen measures 12.6 cm. The pancreas is not well visualized due to obscuration from bowel gas. The visualized portions of the IVC and aorta are grossly unremarkable. IMPRESSION: 1. No acute hepatobiliary pathology. Mild bilateral hydronephrosis.
== END 2024-04-14 06:11 | disposition home or self-care (01) ==
LOC: ER 02:14 → LDRP 03:46
PROVIDERS: ADMIT Obstetrics & Gynecology; ATTEND Obstetrics & Gynecology
DX: O23.42 Unspecified infection of urinary tract in pregnancy, second trimester (principal); N39.0 Urinary tract infection, site not specified; O21.9 Vomiting of pregnancy, unspecified; O26.892 Other specified pregnancy related conditions, second trimester; R10.31 Right lower quadrant pain; Z3A.23 23 weeks gestation of pregnancy; Z88.0 Allergy status to penicillin; Z79.899 Other long term (current) drug therapy
CPT/HCPCS: 36415; 59025; 76700; 80053; 80307; 81001; 81002; 83605; 83690; 85025; 94760; 99284; G0378

== ENCOUNTER 2024-07-21 12:10 | Observation (INO) | payer SELFPAY ==
[~2024-07-21 12:10] MED LIST changes: -ACET500T58 PO; +DOXY25TA9 PO; -LACT10SO3 PO; +METO-281 PO; +NITR-87 PO; +PREN-96 PO; +PYRI50TA71 PO; -ZOFR4T PO
[2024-07-21 12:46] LABS: Basophils # (auto) 0 10 ^3/uL (0-0.2); Basophils % (auto) 0.3 % (0.0-2.0); Eosinophils # (auto) 0.1 10 ^3/uL (0-0.8); Eosinophils % (auto) 0.8 % (0.0-7.0); Hematocrit 32.4 % (36.0-46.0); Hemoglobin 10.7 g/dL (12.2-16.2); Lymphocytes # (auto) 1.5 10 ^3/uL (0.4-5.4); Lymphocytes % (auto) 14.8 % (10.0-50.0); Mean Corpuscular Hemoglobin 27.7 pg (28.0-32.0); Mean Corpuscular Hgb Conc. 32.9 g/dL (32.0-36.0); Mean Corpuscular Volume 84.1 fL (80.0-100.0); Monocytes # (auto) 0.9 10 ^3/uL (0-1.3); Monocytes % (auto) 9.5 % (0.0-12.0); Neutrophils # (auto) 7.4 10 ^3/uL (1.6-8.6); Neutrophils % (auto) 74.6 % (37.0-80.0); Nucleated Red Blood Cells % 0.1 %; Platelet Count (auto) 273 10^3/uL (140-450); Red Blood Cells 3.85 10^6/uL (4.0-5.20); Red Cell Distribution Width 13.7 % (11.8-14.3)
[2024-07-21 12:48] LABS: Urine Bacteria FEW /hpf (None Seen); Urine Blood Negative /uL (Negative); Urine Clarity Turbid (Clear); Urine Color Light-Yellow (Yellow); Urine Mucus FEW (None Seen); Urine Protein, UAD Negative (Negative); Urine Specific Gravity 1.019 (1.001-1.035); Urine Squamous Epithelial Cell MOD /hpf (<5); Urine Urobilinogen Normal (Negative); Urine WBC 13 /HPF (0-5)
[2024-07-21 12:58] LABS: Protein, Urine 15.5 mg/dL (1-14)
[2024-07-21 13:00] LABS: INR 1.04 (0.9-1.15); Partial Thromboplastin Time 30.4 SEC (24.5-34.5)
[2024-07-21 13:00] LABS: Creatinine, Urine 83.86 mg/dL (30.0-125.0); Urine Protein/Creatinine Ratio 0.18
[2024-07-21 13:03] LABS: Albumin 4.2 g/dL (3.2-4.8); Anion Gap 8 (5-15); BUN/Creatinine Ratio 14.9 (10.0-20.0); Bilirubin, Total 0.3 mg/dL (0.2-1.0); Carbon Dioxide 23 mmol/L (20-31); Chloride 105 mmol/L (98-107); Glucose 95 mg/dL (74-106); Potassium 3.9 mmol/L (3.5-5.1); Sodium 136 mmol/L (136-145); Total Protein 6.7 g/dL (5.7-8.2)
[2024-07-21 13:04] LABS: Alanine Aminotransferase < 9 U/L (7-40); Alkaline Phosphatase 148 U/L (46-116); Aspartate Aminotransferase 12 U/L (13-40); Blood Urea Nitrogen 7 mg/dL (9-23); Uric Acid 2.8 mg/dL (3.1-7.8)
--- NOTE | 2024-07-22 16:07 | DVHDS2 ---
Physician Discharge Progress N Final Diagnosis: pih 37wks Operations or Procedures: Operations or Procedures nst reactive reviwed Condition on Discharge: Good Disposition: Home Discharge Instructions: Diet: Regular Activity: No Restrictions, As Tolerated Medications: na Follow Up Care: Specialist: 4d Discharge Statement: "Patient was advised to return to the ER or call 911 if any headaches, dizziness, shortness of breath, chest pain, abdominal pain, bleeding, fevers, or worsening of medical condition. Patient was counseled about treatment plan, medications, possible side effects, patientverbalized understanding. All questions were answered to the best of my ability. This discharge took greater then 30 minutes in planning, reviewing documentation, counseling the patient, and discussing with other team members." Visit Coding OBGYN Date of Service: July 21, 2024 Billing Provider: REJI YANG DO SILVERWARE SUPERVISOR Common Visit Codes: [id number] OBS CARE (HIGH) SILVERWARE SUPERVISOR Procedure Codes: 03114-28- NON-STRESS TEST REJI YANG DO July 22, 2024 16:07
== END 2024-07-21 14:33 | disposition home or self-care (01) ==
LOC: UNDOADMOB 12:10 → LDRP 12:10
PROVIDERS: ADMIT Obstetrics & Gynecology; ATTEND Obstetrics & Gynecology
DX: O13.3 Gestational [pregnancy-induced] hypertension without significant proteinuria, third trimester (principal); Z3A.37 37 weeks gestation of pregnancy; Z79.899 Other long term (current) drug therapy; Z98.890 Other specified postprocedural states
CPT/HCPCS: 36415; 59025; 80053; 81001; 81002; 82570; 84156; 84550; 85025; 85610; 85730; 94760; G0378

== ENCOUNTER 2024-07-27 06:11 | Observation (INO) | payer MEDICAID ==
[2024-07-27 08:43] LABS: Protein, Urine 7.6 mg/dL (1-14)
[2024-07-27 08:46] LABS: Creatinine, Urine 48.13 mg/dL (30.0-125.0); Urine Protein/Creatinine Ratio 0.16
[2024-07-27 08:55] LABS: Urine Bacteria FEW /hpf (None Seen); Urine Blood Negative /uL (Negative); Urine Clarity Clear (Clear); Urine Color Colorless (Yellow); Urine Protein, UAD Negative (Negative); Urine Specific Gravity 1.011 (1.001-1.035); Urine Squamous Epithelial Cell FEW /hpf (<5); Urine Urobilinogen Normal (Negative); Urine WBC 4 /HPF (0-5)
--- NOTE | 2024-07-27 08:55 | DVH ---
BIOPHYSICAL PROFILE HISTORY: PIH Comparison Study: None TECHNIQUE: Multiple real-time grayscale sonographic images through the gravid uterus of the fetus wi th duplex Doppler color flow and M-mode spectral analysis FINDINGS: BIOPHYSICAL PROFILE: breathing score: 2 movement score: 2 tone score: 2 Quantitative RUTHANN score: 2 (RUTHANN: 11.6 Cm.) Total score: 8 The cervix is not visualized Single live fetus in cephalic presentation. heart rate 143 beats per minute. Posterior placenta without previa or abruption IMPRESSION: Biophysical profile score: 8
[2024-07-27 09:03] LABS: Protein, Urine 7.6 mg/dL (1-14)
--- NOTE | 2024-07-27 09:20 | DVHDS2 ---
Physician Discharge Progress N Final Diagnosis: pih ruled out 38wks Operations or Procedures: Operations or Procedures nst reactive reviewed ,sono Condition on Discharge: Good Disposition: Home Discharge Instructions: Diet: Regular Activity: No Restrictions, As Tolerated Medications: na Follow Up Care: Specialist: 1w Discharge Statement: "Patient was advised to return to the ER or call 911 if any headaches, dizziness, shortness of breath, chest pain, abdominal pain, bleeding, fevers, or worsening of medical condition. Patient was counseled about treatment plan, medications, possible side effects, patientverbalized understanding. All questions were answered to the best of my ability. This discharge took greater then 30 minutes in planning, reviewing documentation, counseling the patient, and discussing with other team members." Visit Coding OBGYN Date of Service: July 27, 2024 Billing Provider: REJI YANG DO STABILIZING MACHINE OPERATOR Common Visit Codes: [id number] OBS CARE (HIGH) STABILIZING MACHINE OPERATOR Procedure Codes: 66091-70- NON-STRESS TEST REJI YANG DO July 27, 2024 09:20
== END 2024-07-27 09:29 | disposition home or self-care (01) ==
LOC: LDRP 07:50 → UNDOADMOB 07:50 → LDRP 08:04 → UNDODISOB 09:29
PROVIDERS: ADMIT Obstetrics & Gynecology; ATTEND Obstetrics & Gynecology
DX: O09.213 Supervision of pregnancy with history of pre-term labor, third trimester (principal); Z3A.38 38 weeks gestation of pregnancy; Z88.0 Allergy status to penicillin; Z79.899 Other long term (current) drug therapy
CPT/HCPCS: 59025; 76819; 81001; 81002; 82570; 84156; 94760; G0378; 76818